=== PATIENT | male | born 1935 | race Caucasian/White ===

== ENCOUNTER 2017-06-17 08:01 | Inpatient (IN) ==
[2017-06-17] MEDS ORDERED: ASPIRIN PO STA (08:21)
[2017-06-17 08:42] LABS: MANUAL DIFF NEEDED? NO
[2017-06-17 08:53] LABS: BASO% 0.4 % (0.0-0.8); EOS# 0.18 X1000 (0.0-0.7); EOS% 2.2 % (0.0-10.0); HEMATOCRIT 33.6 % (42.0-52.0); HEMOGLOBIN 10.7 g/dL (14.0-18.0); IMM GRAN# 0.17 X1000 (0.0-0.04); IMM GRAN% 2.1 % (0.0-0.5); LYMPH# 1.04 X1000 (1.2-3.4); LYMPH% 12.7 % (20.5-51.1); MCH 28.6 PG (27-31); MCHC 31.8 g/dL (33-37); MCV 89.8 FL (81-99); MONO# 1.21 X1000 (0.11-0.59); MONO% 14.8 % (1.7-9.3); MPV 8.1 FL (7.4-10.4); NEUT% 67.8 % (42.2-75.2); PLT 251 X1000 (130-400); RBC 3.74 XMIL (4.7-6.1)
[2017-06-17 09:24] LABS: INR 1.05 (0.86-1.15); PROTIME 14.6 Seconds (12.1-15.5)
[2017-06-17 09:25] LABS: PTT PL 35.5 Seconds (22.6-43.9)
[2017-06-17 09:52] LABS: AGAP 15; ALBUMIN 3.1 g/dL (3.5-5.0); ALKALINE PHOSPHATASE 108 U/L (32-122); BUN 23 mg/dL (8-22); CHLORIDE 98 mmol/L (98-107); CK PROFILE 36 U/L (24-204); COSMO 272; GOT 14 U/L (10-34); GPT 8 U/L (10-44); MAGNESIUM 2.1 mg/dL (1.5-2.7); POTASSIUM 4.8 mmol/L (3.5-5.1); SODIUM 134 mmol/L (136-145); TCO2 21 mmol/L (25-35); TOTAL BILIRUBIN 0.28 mg/dL (0.20-1.00)
[2017-06-17] MEDS ORDERED: NS 1,000 ML IV ONE (10:31)
[2017-06-17] MEDS ORDERED: DOXYCYCLINE 100 MG in NS 250 ML IV SCH (11:00)
[2017-06-17] MEDS: ROCEPHIN 1 GM/NS 1 GM/50 ML IVPB IV SCH (11:00)
[2017-06-17] MEDS: LOVENOX SUBQ SCH (14:42)
[2017-06-17] MEDS: DOXYCYCLINE PO SCH (20:37)
[2017-06-17] MEDS: DUONEB (A & A) INH SCH (21:56)
[2017-06-18] MEDS: DUONEB (A & A) INH SCH ×2 (04:01→09:13)
[2017-06-18] MEDS: DOXYCYCLINE PO SCH (08:30)
[2017-06-18] MEDS ORDERED: TYLENOL WITH CODEINE #3 PO PRN (09:52)
[2017-06-18] MEDS ORDERED: VENTOLIN HFA INH PRN (09:52)
[2017-06-18] MEDS: ROCEPHIN 1 GM/NS 1 GM/50 ML IVPB IV SCH (12:07)
[2017-06-18] MEDS: LOVENOX SUBQ SCH (12:07)
[2017-06-18 15:03] VITALS: BP 131/72
[2017-06-18] MEDS ORDERED: LIPITOR PO SCH (21:00)
[2017-06-19] MEDS ORDERED: PLAVIX PO SCH (09:00)
[2017-06-19] MEDS ORDERED: AVAPRO PO SCH (09:00)
[2017-06-19] MEDS ORDERED: FLOMAX PO SCH (09:00)
[2017-06-19] MEDS ORDERED: SYNTHROID PO SCH (09:00)
[2017-06-19] MEDS ORDERED: CARDIZEM CD PO SCH (09:00)
== END 2017-06-18 16:11 | disposition home or self-care (01) ==
LOC: P.ED 08:01 → P.MEDSURG 08:02
PROVIDERS: ADMIT Internal Medicine; ATTEND Internal Medicine